=== PATIENT | male | born 1985 | race Caucasian/White ===

== ENCOUNTER 2018-05-28 09:40 | Emergency (ER) | payer OTHER ==
[~2018-05-28] VITALS: Ht 167.6 cm; Wt 68.9 kg
[2018-05-28] MEDS ORDERED: MELATONIN3 MG (09:48)
== END 2018-05-28 10:24 | disposition home or self-care (01) ==
LOC: ER 09:40
DX: J32.8 Other chronic sinusitis (principal)

== ENCOUNTER 2019-01-16 07:58 | Outpatient (CLI) | payer OTHER ==
[~2019-01-16 07:58] MED LIST: MELATONIN3 MG
[2019-01-29] MEDS ORDERED: NAPR500T14 PO (09:34)
[2019-01-29] MEDS ORDERED: TAMS0.4C PO (09:34)
[2019-01-29] MEDS ORDERED: TRAM1TAB98 PO (09:34)
== END 2019-01-16 07:59 | disposition home or self-care (01) ==
LOC: RAD 07:58
DX: N20.1 Calculus of ureter (principal)

== ENCOUNTER 2019-01-16 09:42 | Outpatient (CLI) | payer OTHER ==
[2019-01-29] MEDS ORDERED: TAMS0.4C PO (09:34)
[2019-01-29] MEDS ORDERED: NAPR500T14 PO (09:34)
[2019-01-29] MEDS ORDERED: TRAM1TAB98 PO (09:34)
== END 2019-01-16 09:48 | disposition home or self-care (01) ==
LOC: LAB 09:42
DX: N20.1 Calculus of ureter (principal)

== ENCOUNTER → 2019-01-25 | Outpatient (CLI) | payer OTHER ==
[~2019-01-25] MED LIST changes: +NAPR500T14 PO; +TAMS0.4C PO; +TRAM1TAB98 PO
== END | disposition home or self-care (01) ==
LOC: RAD 07:19
DX: N20.1 Calculus of ureter (principal)

== ENCOUNTER 2019-01-31 05:20 | Day surgery (SDC) | payer OTHER | END 2019-01-31 14:00 | disposition home or self-care (01) | LOC: CIR.AMB 05:20 | DX: N20.1 Calculus of ureter (principal) ==

== ENCOUNTER 2019-02-09 08:32 | Outpatient (CLI) | payer OTHER | END 2019-02-09 08:34 | disposition home or self-care (01) | LOC: RAD 08:32 | DX: N20.1 Calculus of ureter (principal) ==

== ENCOUNTER 2019-03-05 07:25 | Outpatient (CLI) | payer OTHER | END 2019-03-05 07:34 | disposition home or self-care (01) | LOC: LAB 07:25 | DX: N20.0 Calculus of kidney (principal); N30.00 Acute cystitis without hematuria ==

== ENCOUNTER 2019-03-21 05:25 | Day surgery (SDC) | payer OTHER ==
[~2019-03-21 05:25] MED LIST changes: +CIPRO PO
== END 2019-03-21 16:55 | disposition home or self-care (01) ==
LOC: CIR.AMB 05:25
DX: N20.0 Calculus of kidney (principal)

== ENCOUNTER 2019-04-05 13:01 | Outpatient (CLI) | payer OTHER | END 2019-04-05 13:17 | disposition home or self-care (01) | LOC: RAD 13:01 | DX: N20.0 Calculus of kidney (principal) ==

== ENCOUNTER 2020-12-05 11:46 | Emergency (ER) | payer OTHER ==
[~2020-12-05] VITALS: Ht 167.6 cm; Wt 67.1 kg
[2020-12-05] MEDS ORDERED: [UNRECOGNIZED DRUG - OTHER] (12:08)
[2020-12-05] MEDS ORDERED: LEVOFLOXACIN750 MG PO (17:15)
== END 2020-12-05 19:30 | disposition home or self-care (01) ==
LOC: ER 11:46
DX: N20.0 Calculus of kidney (principal); K76.0 Fatty (change of) liver, not elsewhere classified

== ENCOUNTER 2022-02-21 09:11 | Emergency (ER) | payer OTHER ==
[~2022-02-21] VITALS: Ht 167.6 cm; Wt 64.0 kg
[~2022-02-21 09:11] MED LIST changes: +LEVOFLOXACIN750 MG PO; +[UNRECOGNIZED DRUG - OTHER]
[2022-02-21] MEDS ORDERED: PRILOSEC OTC20 MG PO (15:21)
[2022-02-21] MEDS ORDERED: NASAL MIST126 ML NASAL (15:21)
== END 2022-02-21 15:57 | disposition home or self-care (01) ==
LOC: ER 09:11
DX: K21.9 Gastro-esophageal reflux disease without esophagitis (principal)

== ENCOUNTER 2024-05-22 10:49 | Emergency (ER) | payer OTHER ==
[~2024-05-22] VITALS: Ht 167.6 cm; Wt 73.0 kg
[~2024-05-22 10:49] MED LIST changes: +NASAL MIST126 ML NASAL; +PRILOSEC OTC20 MG PO
[2024-05-22] MEDS ORDERED: ORPHENADRINE CITRATE 30 MG/ML AMPUL IM ONE (14:45)
[2024-05-22] MEDS ORDERED: KETOROLAC TROMETHAMINE 30 MG VIAL IM ONE (14:45)
[2024-05-22] MEDS ORDERED: KETOROLAC TROMETHAMINE 30 MG VIAL ONE (15:10)
[2024-05-22] MEDS ORDERED: ORPHENADRINE CITRATE 30 MG/ML AMPUL ONE (15:10)
[2024-05-22] MEDS ORDERED: CELEBREX200MG PO (16:31)
[2024-05-22] MEDS ORDERED: TIZANIDINE HCL2 M1 PO (16:31)
== END 2024-05-22 16:55 | disposition home or self-care (01) ==
LOC: ER 10:50
DX: S29.012A Strain of muscle and tendon of back wall of thorax, initial encounter (principal); X58.XXXA Exposure to other specified factors, initial encounter; Y93.89 Activity, other specified; Y92.89 Other specified places as the place of occurrence of the external cause; Y99.9 Unspecified external cause status